=== PATIENT | female | born 1955 | race African-American/Black ===

== ENCOUNTER 2016-12-31 08:32 | Emergency (ER) | payer MEDICAID ==
[~2016-12-31] VITALS: Ht 157.5 cm; Wt 64.0 kg
[2016-12-31 08:36] VITALS: BP 139/84
== END 2016-12-31 16:10 | disposition left against medical advice (07) ==
LOC: ER 09:23
DX: R07.89 Other chest pain (principal); F17.200 Nicotine dependence, unspecified, uncomplicated
CPT/HCPCS: 93005

== ENCOUNTER 2017-03-25 11:37 | Emergency (ER) | payer MEDICAID ==
[~2017-03-25] VITALS: Ht 160 cm; Wt 65.0 kg
[2017-03-25] MEDS ORDERED: TRAMADOL 50MG TABLET PO ONE (20:15)
[2017-03-25] MEDS ORDERED: SODIUM CHLORIDE 0.9% 1,000 ML IV ONE ×2 (22:15→23:15)
[2017-03-25 23:29] LABS: BASOPHILS % 0.8 % (0.0-2.0); EOSINOPHILS % 2.3 % (0.0-5.0); HEMATOCRIT. 40.5 % (36.0-48.0); HEMOGLOBIN. 14.2 g/dL (12.0-16.0); LYMPHOCYTES % 22.5 % (20.0-50.0); MEAN CORPUSCULAR HEMOGLOBIN 31.8 pg (28.0-32.0); MEAN PLATELET VOLUME 8.5 fl (7.4-10.4); MONOCYTES % 10.8 % (2.0-8.0); NEUTROPHILS % 63.6 % (40.0-76.0); PLATELET 166 x1000/uL (130-400); RED BLOOD CELL COUNT 4.45 mill/uL (4.2-5.4); RED CELL DISTRIBUTION WIDTH 14.5 % (11.6-14.6)
[2017-03-25 23:34] LABS: CHLORIDE 103 mEq/L (98-107)
[2017-03-25 23:36] LABS: CARBON DIOXIDE 31 mEq/L (21-32)
[2017-03-25] MEDS ORDERED: POTASSIUM CHLORIDE 20MEQ TABLET SR PO ONE (23:45)
[2017-03-25] MEDS ORDERED: KCL 20MEQ/100ML PREMIX 100 ML IV ONE (23:45)
[2017-03-25 23:59] LABS: CLARITY URINE CLEAR (CLEAR); COLOR URINE YELLOW (YELLOW); GLUCOSE URINE NEGATIVE (NEGATIVE); KETONES URINE 2+ (NEGATIVE); LEUKOCYTE ESTERASE URINE NEGATIVE (NEGATIVE); NITRITE URINE NEGATIVE (NEGATIVE); OCCULT BLOOD URINE 1+ (NEGATIVE); PH URINE 6.5 (4.5-8.0); PROTEIN URINE NEGATIVE (NEGATIVE); SPECIFIC GRAVITY URINE 1.014 (1.005-1.030)
[2017-03-26 01:20] VITALS: BP 129/84
== END 2017-03-26 03:10 | disposition home or self-care (01) ==
LOC: ER 18:50
DX: M79.604 Pain in right leg (principal); M79.605 Pain in left leg; E87.6 Hypokalemia; R00.1 Bradycardia, unspecified; F17.200 Nicotine dependence, unspecified, uncomplicated; Z88.0 Allergy status to penicillin
CPT/HCPCS: 36415; 80048; 81001; 85025; 93005; 93970; 96361; 96365; 99285; J3480; J7030; J7050; Z7610